=== PATIENT | male | born 1965 | race Caucasian/White ===

== ENCOUNTER 2020-01-24 10:15 | Emergency (ER) | payer BC ==
[~2020-01-24] VITALS: Ht 180.3 cm; Wt 93.0 kg
[2020-01-24] MEDS ORDERED: ASPIRIN 81 MG TAB.CHEW PO ONE (10:30)
[2020-01-24 11:01] LABS: BASOPHILS % (AUTO) 0.5 % (0.0-2.0); EOSINOPHILS # (AUTO) 0.2 K/uL (0.0-0.4); EOSINOPHILS % (AUTO) 2.4 % (0.0-4.0); HEMATOCRIT 45.8 % (36-54); HEMOGLOBIN 15.4 g/dL (14.0-18.0); LYMPHOCYTES % (AUTO) 22.5 % (20.5-51.5); MEAN CORPUSCULAR HEMOGLOBIN 30 pg (27-31); MEAN CORPUSCULAR HGB CONC 34 % (32-36); MEAN CORPUSCULAR VOLUME 89 fL (79.0-98.0); MONOCYTES % (AUTO) 10.7 % (1.7-9.3); NEUTROPHILS # (AUTO) 5.7 K/uL (1.8-7.7); NEUTROPHILS % (AUTO) 63.9 % (40.0-70.0); PLATELET COUNT (AUTO) 318 K/uL (130-430); RED BLOOD CELL COUNT(AUTO) 5.15 MIL/uL (4.2-6.2)
--- NOTE | 2020-01-24 11:01 | NUR ---
DR CASTAÑEDA IN TO ASSESS
[2020-01-24 11:15] LABS: CALCIUM 8.6 mg/dL (8.4-11.0); CREATININE 0.98 mg/dL (0.55-1.30); POTASSIUM 3.8 mmol/L (3.5-5.1)
[2020-01-24 11:29] LABS: ALBUMIN 3.9 g/dL (3.4-4.8); TOTAL BILIRUBIN 0.6 mg/dL (0.0-1.0)
--- NOTE | 2020-01-24 11:30 | NUR ---
ADRIAN TO ASSUME CARE. PT HERE FOR C/O CP UPON ASSESSMENT, STATED FEELING BETTER. DECREASE IN CP
--- NOTE | 2020-01-24 12:20 | NUR ---
OFF TO CXR. STEADY GAIT, NO DYSPNEA. SKIN WARM AND DRY
[2020-01-24 12:33] VITALS: BP_SYST 127
--- NOTE | 2020-01-24 12:34 | NUR ---
Patient given written and verbal discharge instructions and verbalizes understanding. ER MD discussed with patient the results and treatment provided. Patient in stable condition. ID arm band removed. IV catheter removed intact and dressing applied, no active bleeding. Rx given. Patient educated on pain management and to follow up with PMD. Pain Scale . Opportunity for questions provided and answered. Medication side effect fact sheet provided.
== END 2020-01-24 12:34 | disposition home or self-care (01) ==
LOC: SED 10:15
DX: R07.89 Other chest pain (principal)
CPT/HCPCS: 36415; 71045; 80053; 83880; 84484; 85025; 85379; 93005; 99285